=== PATIENT | male | born 1960 | race Caucasian/White ===

== ENCOUNTER 2016-09-26 07:32 | Emergency (ER) | payer BC ==
[~2016-09-26 07:32] MED LIST: CLINDAMYCIN HC300 MG PO; PRILOSEC OTC20 MG PO; VENTOLIN HFA IN; ZYVOX600 MG PO
--- NOTE | 2016-09-26 10:34 | DIAGNOSTIC IMAGING REPORT ---
PROCEDURE: XR CHEST 1 VIEW INDICATION: CHEST PAIN (NOW RESOLVED), COUGH, WHEEZING TECHNIQUE: Portable AP view 08:22 a.m. COMPARISON: Chests 08/30 and 08/27/2014 FINDINGS: Lungs are clear. Heart and mediastinum are normal. Thorax is normal. IMPRESSION: 1. Negative chest.
--- NOTE | 2016-09-26 10:49 | ED NURSING NOTES ---
Clinical Report - Nurses [facility] [address] [place] [address] 09/26/2016 7:32 [id number] Triage time 07:35. Acuity: LEVEL 3. Chief Complaint: CHEST PAIN and (Patient states he "woke up from sleeping" with chest pain that "bounces around my chest."). Alert. No acute distress. SEPSIS SCREEN: Sepsis Screen. Negative (no infection suspected/documented). CONSTANTIN COMA SCORE: [place] Coma Scale: 15- eyes open spontaneously (4); best verbal response- oriented x 4 (5); best motor response- obeys commands (6). --08:00 Remedios Manley R.N. 07:43 09/26/16. BP: 126/63 (regular adult cuff) taken on the right arm, while sitting. HR: 88. RR: 20. O2 saturation: 99% on room air. Temp: 97.5 F. Pain level now: 06/27. --08:00 Remedios Manley R.N. Weight: 95.2 kg estimated. Height/Length: 72 inches Estimated. BMI: 28.5. --07:59 Remedios Manley R.N. Medications PriLOSEC Oral (Capsule Delayed Release 20 mg) 1 capsule, 2x a day. --07:47 Remedios Manley R.N. Atorvastatin Calcium Oral (Tablet 40 mg) 1 tablet, daily. --07:47 Remedios Manley R.N. Clopidogrel Bisulfate Oral (Tablet 75 mg) 1 tablet, daily. --07:47 Remedios Manley R.N. Metoprolol Tartrate Oral (Tablet 50 mg) 1 tablet, 2x/day. --07:47 Remedios Manley R.N. Albuterol Sulfate HFA Inhalation 2 puffs, 4x a day as needed. --07:48 Remedios Manley R.N. MetFORMIN HCl Oral (Tablet 500 mg) 1 tablet, 2x a day. --07:48 Remedios Manley R.N. Methotrexate Sodium Oral (Tablet 2.5 mg) 1 tablet, 3x weekly. --07:48 Remedios Manley R.N. Nitroglycerin Sublingual (Tablet Sublingual 0.4 mg) 1 tablet, 3x a day as needed. --07:49 Remedios Manley R.N. Triamcinolone Acetonide External (Cream 0.025 %), daily as needed. --07:49 Remedios Manley R.N. Allergies Penicillins. --07:47 Remedios Manley R.N. History Arrived by private vehicle. Historian: patient. Accompanied by family. Primary physician (Dr Crain). Onset. (around 2:00 this morning). ( Patient reports he had an NJ on Jun 04, 2016.). No difficulty breathing, nausea or vomiting. Treatment OREMAN: (Nitroglycerin (x2). Patient states the second nitro "knocked the pain down"). PAST MEDICAL HX: Diabetes mellitus. Heart disease. No history of hypertension. Immunizations: up-to-date. SOCIAL HX: Heavy tobacco smoker- 1 pack per day. History of occasional drug use: marijuana. No alcohol use. FALL RISK ASSESSMENT: Fall risk assessment completed. No fall risk identified. NUTRITIONAL RISK ASSESSMENT: The nutritional risk assessment revealed no deficiencies. FUNCTIONAL ASSESSMENT: Functional assessment: no impairments noted. LEARNING NEEDS ASSESSMENT: The learning needs assessment revealed no barriers. SKIN INTEGRITY ASSESSMENT: Skin integrity risk assessment completed. No skin integrity risk identified. --08:00 Remedios Manley R.N. PROBLEMS: Myocardial Infarction. Pneumonia. COPD - Chronic Obstructive Pulmonary Disease. Gastroesophageal Reflux. Gastroesophageal Reflux Disease. --07:56 Remedios Manley R.N. ADDITIONAL SURGERIES: Cardiac Catheterization. --07:56 Remedios Manley R.N. Interventions ID band on patient. To treatment room. --08:00 Remedios Manley R.N. PHYSICAL ASSESSMENT 08:02 09/26/16. Ambulatory to room. GENERAL / NEURO / PSYCH: Alert. Oriented X 4. Appears in no acute distress. HEENT: Mucous membranes are pink. RESPIRATORY: Mild respiratory distress. Chest nontender. Inspiratory bilateral wheezes diffusely. CVS: Heart sounds within normal limits. Pulses within normal limits. Capillary refill less than 2 seconds. GI / : Abdomen soft and nontender. SKIN: Skin is warm and dry. Normal skin turgor. --08:02 Remedios Manley R.N. NURSING PROGRESS NOTES Oxygen administered. millinery teacher, pulse oximeter and NIBP monitor placed on patient. Patient gowned. Head of bed elevated. Two patient identifiers checked. Call light placed in reach. Side rails up x 2. Bed placed in lowest position. Brakes of bed on. Patient ready for evaluation- chart flagged and notification provided. Patient informed about reason for wait and about plan of care. --08:03 Remedios Manley R.N. ( Patient placed on 1L oxygen). --08:04 Remedios Manley R.N. EKG time: (45). EKG was ordered, performed by a tech and shown to the ED physician. --08:09 Facundo Gastelum, SAMMI Tech1 07:44 09/26/2016 Site #1 started via IV in the left forearm with an 20g angiocath; one attempt. Blood drawn: rainbow set. Labeled in the presence of the patient and sent to the lab. Saline lock flushed with 5 mL saline. --08:09 Remedios Manley R.N. 08:34 09/26/2016 Duoneb (Ipratropium-Albuterol) Neb TX Nebulizer 1 unit dose given. Given by the respiratory therapist. Allergies verified and confirmed 5 rights. --08:34 Remedios Manley R.N. 08:44 09/26/2016 Duoneb Neb TX Response: no adverse reaction symptoms have improved the patient feels better. --08:44 Remedios Manley R.N. Reassessment after intervention and medication administered. He has had no adverse reaction. Overall patient status is improved. RESPIRATORY: Breath sounds normal. No wheezes. --08:45 Remedios Manley R.N. Patient and family informed about reason for wait and about plan of care. --08:45 Remedios Manley R.N. 08:00 09/26/16. BP: 120/62 (regular adult cuff) taken on the right arm, while sitting. HR: 86. RR: 21. O2 saturation: 94%. Temp: deferred. Pain level now: 06/27. --08:59 Remedios Manley R.N. EKG time: (1009). EKG was ordered, performed by a tech and shown to the ED physician. --10:15 Facundo Gastelum, SAMMI Tech1. DISPOSITION / DISCHARGE 10:59 09/26/16. BP: 119/73. HR: 85. RR: 18. O2 saturation: 99%. Temp: deferred. Pain level now: 05/27. --11:00 Remedios Manley R.N. 10:51 09/26/2016 Site #1 removed upon discharge. Manual pressure and bandaid applied. --11:01 Remedios Manley R.N. 11:00 09/26/16. No learning barriers present. Discharge instructions provided and reviewed with the patient and spouse. Reviewed referrals. Reviewed diet. Reviewed need to stop smoking. Activity restrictions reviewed. Patient and spouse verbalized understanding. Written instructions provided in Luxembourgish. The patient was discharged by the physician. He was discharged home and accompanied by spouse. He left the Emergency Department ambulatory and via private vehicle. Patient driving. --11:00 Remedios Manley R.N. Locked/Released at 09/26/2016 11:02 by Remedios Manley R.N.
--- NOTE | 2016-09-26 10:49 | ED CLINICAL REPORT ---
Clinical Report - Physicians/Mid Levels [facility] [address] [place] [address] 09/26/2016 7:32 Patient: ALLISON WIGGINS Time Seen: 0748. Arrived- By private vehicle. Historian- patient. CPT: ER phys charges level 5 plus (#[id number]). EKG interpretation (#[id number]). HISTORY OF PRESENT ILLNESS Chief Complaint: CHEST PAIN. At its maximum, severity described as severe. When seen in the E.D., it was gone. Modifying factors- relieved by nitroglycerin (two). Not worsened by anything. 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 He then awoke a 0600 with more chest pressure and took another NTG. He took all his usual meds this morning including plavix. It was abrupt in onset and has been intermittent but is gone now. Is now gone. Onset during sleep. It is described as sharp and it is described as located in the left chest area. No radiation. No nausea, vomiting, difficulty breathing or diaphoresis. (no coughing up blood, no hx of DVT/PE, no recent surgery/trauma.). No additional chest pain. Similar symptoms previously: Once. ( states it feels like when he had his recent heart attack several months ago). Recent medical care: ( Last seen by Dr Briggs, rn immunology Jun. of this year and was doing well.). Not recently seen/assessed. REVIEW OF SYSTEMS No fever, chills, cough, pedal edema or calf pain. No fainting episodes, sore throat or throat, abdominal pain or black stools. No difficulty with urination, skin rash or rash, weakness or diabetic symptoms. No easy bruising. No difficulty walking. All systems otherwise negative, except as recorded above. PAST HISTORY See nurses notes. Myocardial Infarction. Pneumonia. COPD - Chronic Obstructive Pulmonary Disease. Gastroesophageal Reflux. Gastroesophageal Reflux Disease. ADDITIONAL SURGERIES: Cardiac Catheterization. Medications: Triamcinolone Acetonide External (Cream 0.025 %), daily as needed. Nitroglycerin Sublingual (Tablet Sublingual 0.4 mg) 1 tablet, 3x a day as needed. Methotrexate Sodium Oral (Tablet 2.5 mg) 1 tablet, 3x weekly. MetFORMIN HCl Oral (Tablet 500 mg) 1 tablet, 2x a day. Albuterol Sulfate HFA Inhalation 2 puffs, 4x a day as needed. Metoprolol Tartrate Oral (Tablet 50 mg) 1 tablet, 2x/day. Clopidogrel Bisulfate Oral (Tablet 75 mg) 1 tablet, daily. Atorvastatin Calcium Oral (Tablet 40 mg) 1 tablet, daily. PriLOSEC Oral (Capsule Delayed Release 20 mg) 1 capsule, 2x a day. Allergies: Penicillins. SOCIAL HISTORY Smoker- current status unknown. No alcohol use or drug use. No recent travel. Is a local resident. ADDITIONAL NOTES The nursing notes have been reviewed. PHYSICAL EXAM Vital Signs: 09/26/2016 07:43 BP: 126/63. HR: 88. RR: 20. O2 saturation: 99%. Temp: 97.5 F. Pain level now: 2/10. Blood pressure normal. Oxygen saturation normal. Appearance: Alert. Oriented X3. No acute distress. No marfanoid habitus. (non-toxic). Eyes: Pupils equal, round and reactive to light. Eyes normal inspection. ENT: Pharynx normal. Neck: Normal inspection. Neck supple. CVS: Normal heart rate and rhythm. Heart sounds normal. Pulses normal. Respiratory: No respiratory distress. Breath sounds normal. Chest nontender. No rales, rhonchi or wheezes. Abdomen: Soft and nontender. Bowel sounds normal. Skin: Skin warm and dry. Normal skin color. No rash. Normal skin turgor. Extremities: Extremities exhibit normal ROM. No lower extremity edema. Neuro: Oriented X 3. No motor deficit. No sensory deficit. LABS, X-RAYS, AND EKG EKG: No acute process. No acute ischemia. Normal EKG. Normal sinus rhythm. Rate: 88. Normal P waves. Normal GIULIANO. Normal QRS complex. Normal axis. Normal ST and T waves, QT and QTc. The study has been interpreted contemporaneously. The study has been independently viewed by me. The EKG appears to be a good tracing. EKG #2: Normal sinus rhythm. Normal P waves. Normal QRS complex. Normal axis. T wave inversion in lead V1. EKG unchanged when compared with prior EKG. The study has been interpreted contemporaneously. The study has been independently viewed by me. The EKG appears to be a good tracing. Laboratory Tests: CBC w Diff: (STACIE: 09/26/2016 07:50) ( [facility] 09/26/2016 08:16) Final results Test Result Flag Units (Reference) WHITE BLOOD COUNT 15.3 H K/uL (4.5-11.5) RED BLOOD COUNT 4.33 L M/uL (4.50-5.90) HEMOGLOBIN 15.4 gm/dL (13.5-17.5) HEMATOCRIT 45.9 % (41.0-53.0) MEAN CELL VOLUME 106 H fL (80-100) MEAN CORPUSCULAR HGB 36 H pg (26-34) MEAN CORPUSCULAR HGB CONC 34 g/dL (31-37) RED CELL DISTRIBUTION WIDTH 17.6 H % (11.6-14.8) PLATELET COUNT 229 K/uL (150-400) NEUTROPHIL % 91.2 H % (50-75) LYMPH % 4.6 L % (25-40) MONO % 2.7 L % (3-14) EOSINOPHIL % 1.3 % (0-4) BASOPHIL % 0.2 % (0-2) PT with INR: (STACIE: 09/26/2016 07:50) ( [facility] 09/26/2016 08:22) Final results Test Result Flag Units (Reference) INR 1.0 (0.8-1.2) Low Intensity Therapy: INR 1.5-2.0 PT range 18.5-23.1Mod.Intensity Therapy: INR 2.0-3.0 PT range 23.1-31.5High Intensity Therapy: INR 2.5-3.5 PT range 27.4-35.5High Intensity Therapy 2: INR 3.0-4.0 PT range 31.5-39.3 CMP: (STACIE: 09/26/2016 07:50) ( [facility] 09/26/2016 08:25) Final results Test Result Flag Units (Reference) GLUCOSE 170 H mg/dL (70-110) BUN 16 mg/dL (7-18) CREATININE 1.2 mg/dL (0.6-1.3) Estimated GFR >60 mL/min Estimated GFR- >60 mL/min Note: Persistent reduction over 3 months in eGFR<60 mL/min/1.73 m2 defines CKD. Patients with eGFR values>=60 mL/min/1.73 m2 may also have CKD if evidence ofpersistent proteinuria. Additional information may be foundat www.[email or web address]. SODIUM 140 mmol/L (136-145) POTASSIUM 4.5 mmol/L (3.5-5.1) CHLORIDE 107 mmol/L (98-107) CARBON DIOXIDE 25 mmol/L (21-32) CALCIUM 8.0 L mg/dL (8.5-10.1) TOTAL PROTEIN 6.7 g/dL (6.4-8.2) ALBUMIN 3.0 L g/dL (3.3-5.0) BILIRUBIN, TOTAL 0.7 mg/dL (0.0-1.0) ALKALINE PHOSPHATASE 181 H U/L (46-116) AST (SGOT) 19 U/L (15-37) ALT (SGPT) 58 U/L (12-78) TROPONIN I <0.05 ng/mL (0.00-1.5) TROPONIN REFERENCE RANGE:<0.1 NEGATIVE0.1-1.5 INDETERMINANT>1.5 POSITIVE . PROGRESS AND PROCEDURES Course of Care: The patient is a pleasant 56 yo male with hx CAD, smoking, and hyperlipidemia. Recent cardiac cath a few months ago. Presenting for chest pain. Patient with symptom relief with nitro. Concern for ACS. Do not feel work up for PE needed at this time given patient is not having any pain at this time. Patient is wheezing on exam and hx of COPD. Will provided breathing treatment. patient's care to be transfered at the change of shift to the oncoming doctor who will follow up on labs and disposition. Pt with 2 episodes of angina with a stent to the LAD less than 6 months ago. Troponins times 2 negative. EKG times 2 negative for ischemia. Pt with a WILLIAM score of [address] Briggs and he will see in the office today. Pt walked around ER with no recurrent CP. Discussed case with on-call health care provider, (Brigitte, Cardiology.). Reviewed test results. Agreed upon treatment plan. Health care provider will see patient in office. Patient/family counseled. Old medical records ordered. Disposition: Discharged in improved condition. CLINICAL IMPRESSION Recurrent angina status post LAD stent less than 6 months ago. INSTRUCTIONS No strenuous activity. Rest. Avoid stimulants (such as cigarettes, coffee, cold medicines, sinus medicines, street drugs). (See Dr Briggs in office today.). Warnings: Further evaluation is necessary. GENERAL WARNINGS: Return or contact your physician immediately if your condition worsens or changes unexpectedly, if not improving as expected, or if other problems arise. Your Current Medications: CONTINUE TAKING THE FOLLOWING MEDICATIONS: Albuterol Sulfate HFA Inhalation : 2 puffs 4x a day, prn. Atorvastatin Calcium Oral : Tablet 40 mg, 1 tablet daily. Clopidogrel Bisulfate Oral : Tablet 75 mg, 1 tablet daily. MetFORMIN HCl Oral : Tablet 500 mg, 1 tablet 2x a day. Methotrexate Sodium Oral : Tablet 2.5 mg, 1 tablet 3x weekly. Metoprolol Tartrate Oral : Tablet 50 mg, 1 tablet 2x/day. Nitroglycerin Sublingual : Tablet Sublingual 0.4 mg, 1 tablet 3x a day, prn. PriLOSEC Oral : Capsule Delayed Release 20 mg, 1 capsule 2x a day. Triamcinolone Acetonide External : Cream 0.025 %, daily, prn. Understanding of the discharge instructions verbalized by patient and family. Discharge instructions reviewed with and understanding was verbalized by spouse. (Electronically signed by Eligio Coronado MD 09/26/2016 13:47)
--- NOTE | 2016-09-26 10:49 | ED CLINICAL REPORT ---
Clinical Report - Physicians/Mid Levels [facility] [address] [place] [address] 09/26/2016 7:32 Patient: ALLISON WIGGINS Time Seen: 0748. Arrived- By private vehicle. Historian- patient. CPT: ER phys charges level 5 plus (#[id number]). EKG interpretation (#[id number]). HISTORY OF PRESENT ILLNESS Chief Complaint: CHEST PAIN. At its maximum, severity described as severe. When seen in the E.D., it was gone. Modifying factors- relieved by nitroglycerin (two). Not worsened by anything. 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 He then awoke a 0600 with more chest pressure and took another NTG. He took all his usual meds this morning including plavix. It was abrupt in onset and has been intermittent but is gone now. Is now gone. Onset during sleep. It is described as sharp and it is described as located in the left chest area. No radiation. No nausea, vomiting, difficulty breathing or diaphoresis. (no coughing up blood, no hx of DVT/PE, no recent surgery/trauma.). No additional chest pain. Similar symptoms previously: Once. ( states it feels like when he had his recent heart attack several months ago). Recent medical care: ( Last seen by Dr Briggs, dub room engineer Jun. of this year and was doing well.). Not recently seen/assessed. REVIEW OF SYSTEMS No fever, chills, cough, pedal edema or calf pain. No fainting episodes, sore throat or throat, abdominal pain or black stools. No difficulty with urination, skin rash or rash, weakness or diabetic symptoms. No easy bruising. No difficulty walking. All systems otherwise negative, except as recorded above. PAST HISTORY See nurses notes. Myocardial Infarction. Pneumonia. COPD - Chronic Obstructive Pulmonary Disease. Gastroesophageal Reflux. Gastroesophageal Reflux Disease. ADDITIONAL SURGERIES: Cardiac Catheterization. Medications: Triamcinolone Acetonide External (Cream 0.025 %), daily as needed. Nitroglycerin Sublingual (Tablet Sublingual 0.4 mg) 1 tablet, 3x a day as needed. Methotrexate Sodium Oral (Tablet 2.5 mg) 1 tablet, 3x weekly. MetFORMIN HCl Oral (Tablet 500 mg) 1 tablet, 2x a day. Albuterol Sulfate HFA Inhalation 2 puffs, 4x a day as needed. Metoprolol Tartrate Oral (Tablet 50 mg) 1 tablet, 2x/day. Clopidogrel Bisulfate Oral (Tablet 75 mg) 1 tablet, daily. Atorvastatin Calcium Oral (Tablet 40 mg) 1 tablet, daily. PriLOSEC Oral (Capsule Delayed Release 20 mg) 1 capsule, 2x a day. Allergies: Penicillins. SOCIAL HISTORY Smoker- current status unknown. No alcohol use or drug use. No recent travel. Is a local resident. ADDITIONAL NOTES The nursing notes have been reviewed. PHYSICAL EXAM Vital Signs: 09/26/2016 07:43 BP: 126/63. HR: 88. RR: 20. O2 saturation: 99%. Temp: 97.5 F. Pain level now: 2/10. Blood pressure normal. Oxygen saturation normal. Appearance: Alert. Oriented X3. No acute distress. No marfanoid habitus. (non-toxic). Eyes: Pupils equal, round and reactive to light. Eyes normal inspection. ENT: Pharynx normal. Neck: Normal inspection. Neck supple. CVS: Normal heart rate and rhythm. Heart sounds normal. Pulses normal. Respiratory: No respiratory distress. Breath sounds normal. Chest nontender. No rales, rhonchi or wheezes. Abdomen: Soft and nontender. Bowel sounds normal. Skin: Skin warm and dry. Normal skin color. No rash. Normal skin turgor. Extremities: Extremities exhibit normal ROM. No lower extremity edema. Neuro: Oriented X 3. No motor deficit. No sensory deficit. LABS, X-RAYS, AND EKG EKG: No acute process. No acute ischemia. Normal EKG. Normal sinus rhythm. Rate: 88. Normal P waves. Normal GIULIANO. Normal QRS complex. Normal axis. Normal ST and T waves, QT and QTc. The study has been interpreted contemporaneously. The study has been independently viewed by me. The EKG appears to be a good tracing. EKG #2: Normal sinus rhythm. Normal P waves. Normal QRS complex. Normal axis. T wave inversion in lead V1. EKG unchanged when compared with prior EKG. The study has been interpreted contemporaneously. The study has been independently viewed by me. The EKG appears to be a good tracing. Laboratory Tests: CBC w Diff: (STACIE: 09/26/2016 07:50) ( [facility] 09/26/2016 08:16) Final results Test Result Flag Units (Reference) WHITE BLOOD COUNT 15.3 H K/uL (4.5-11.5) RED BLOOD COUNT 4.33 L M/uL (4.50-5.90) HEMOGLOBIN 15.4 gm/dL (13.5-17.5) HEMATOCRIT 45.9 % (41.0-53.0) MEAN CELL VOLUME 106 H fL (80-100) MEAN CORPUSCULAR HGB 36 H pg (26-34) MEAN CORPUSCULAR HGB CONC 34 g/dL (31-37) RED CELL DISTRIBUTION WIDTH 17.6 H % (11.6-14.8) PLATELET COUNT 229 K/uL (150-400) NEUTROPHIL % 91.2 H % (50-75) LYMPH % 4.6 L % (25-40) MONO % 2.7 L % (3-14) EOSINOPHIL % 1.3 % (0-4) BASOPHIL % 0.2 % (0-2) PT with INR: (STACIE: 09/26/2016 07:50) ( [facility] 09/26/2016 08:22) Final results Test Result Flag Units (Reference) INR 1.0 (0.8-1.2) Low Intensity Therapy: INR 1.5-2.0 PT range 18.5-23.1Mod.Intensity Therapy: INR 2.0-3.0 PT range 23.1-31.5High Intensity Therapy: INR 2.5-3.5 PT range 27.4-35.5High Intensity Therapy 2: INR 3.0-4.0 PT range 31.5-39.3 CMP: (STACIE: 09/26/2016 07:50) ( [facility] 09/26/2016 08:25) Final results Test Result Flag Units (Reference) GLUCOSE 170 H mg/dL (70-110) BUN 16 mg/dL (7-18) CREATININE 1.2 mg/dL (0.6-1.3) Estimated GFR >60 mL/min Estimated GFR- >60 mL/min Note: Persistent reduction over 3 months in eGFR<60 mL/min/1.73 m2 defines CKD. Patients with eGFR values>=60 mL/min/1.73 m2 may also have CKD if evidence ofpersistent proteinuria. Additional information may be foundat [email or web address].org. SODIUM 140 mmol/L (136-145) POTASSIUM 4.5 mmol/L (3.5-5.1) CHLORIDE 107 mmol/L (98-107) CARBON DIOXIDE 25 mmol/L (21-32) CALCIUM 8.0 L mg/dL (8.5-10.1) TOTAL PROTEIN 6.7 g/dL (6.4-8.2) ALBUMIN 3.0 L g/dL (3.3-5.0) BILIRUBIN, TOTAL 0.7 mg/dL (0.0-1.0) ALKALINE PHOSPHATASE 181 H U/L (46-116) AST (SGOT) 19 U/L (15-37) ALT (SGPT) 58 U/L (12-78) TROPONIN I <0.05 ng/mL (0.00-1.5) TROPONIN REFERENCE RANGE:<0.1 NEGATIVE0.1-1.5 INDETERMINANT>1.5 POSITIVE . PROGRESS AND PROCEDURES Course of Care: The patient is a pleasant 56 yo male with hx CAD, smoking, and hyperlipidemia. Recent cardiac cath a few months ago. Presenting for chest pain. Patient with symptom relief with nitro. Concern for ACS. Do not feel work up for PE needed at this time given patient is not having any pain at this time. Patient is wheezing on exam and hx of COPD. Will provided breathing treatment. patient's care to be transfered at the change of shift to the oncoming doctor who will follow up on labs and disposition. Pt with 2 episodes of angina with a stent to the LAD less than 6 months ago. Troponins times 2 negative. EKG times 2 negative for ischemia. Pt with a WILLIAM score of [address] Briggs and he will see in the office today. Pt walked around ER with no recurrent CP. Discussed case with on-call health care provider, (Brigitte, Cardiology.). Reviewed test results. Agreed upon treatment plan. Health care provider will see patient in office. Patient/family counseled. Old medical records ordered. Disposition: Discharged in improved condition. CLINICAL IMPRESSION Recurrent angina status post LAD stent less than 6 months ago. INSTRUCTIONS No strenuous activity. Rest. Avoid stimulants (such as cigarettes, coffee, cold medicines, sinus medicines, street drugs). (See Dr Briggs in office today.). Warnings: Further evaluation is necessary. GENERAL WARNINGS: Return or contact your physician immediately if your condition worsens or changes unexpectedly, if not improving as expected, or if other problems arise. Your Current Medications: CONTINUE TAKING THE FOLLOWING MEDICATIONS: Albuterol Sulfate HFA Inhalation : 2 puffs 4x a day, prn. Atorvastatin Calcium Oral : Tablet 40 mg, 1 tablet daily. Clopidogrel Bisulfate Oral : Tablet 75 mg, 1 tablet daily. MetFORMIN HCl Oral : Tablet 500 mg, 1 tablet 2x a day. Methotrexate Sodium Oral : Tablet 2.5 mg, 1 tablet 3x weekly. Metoprolol Tartrate Oral : Tablet 50 mg, 1 tablet 2x/day. Nitroglycerin Sublingual : Tablet Sublingual 0.4 mg, 1 tablet 3x a day, prn. PriLOSEC Oral : Capsule Delayed Release 20 mg, 1 capsule 2x a day. Triamcinolone Acetonide External : Cream 0.025 %, daily, prn. Understanding of the discharge instructions verbalized by patient and family. Discharge instructions reviewed with and understanding was verbalized by spouse. (Electronically signed by Eligio Coronado MD 09/26/2016 13:47)
--- NOTE | 2016-09-26 10:49 | ED ORDER SUMMARY ---
..... Patient: ALLISON WIGGINS OrderSheet [facility] VisitID: [id number] [address] [place] [address] 56y, M Registration Date/Time: 09/26/2016 ORDER SHEET Weight: 95.2 kg (estimated) Allergies: Penicillins GENERAL ORDERS: EKG - ER Stat (07:48 09/26/2016 Ivette Moser) (7:53 Kvng R.N.) Chest 1V Urgent (08:06 09/26/2016 Ivette Moser) (Ack 8:08 ALBAurca ER Tech1) (8:23 RMarsden R.N.) Pipe Fitter Ammonia (Continuous) (CP) (08:07 09/26/2016 Ivette Moser) (8:08 RMarsden R.N.) (Ack 8:08 ALBAurca ER Tech1) CBC w Diff Urgent (08:07 09/26/2016 Ivette Moser) (8:08 RMarsden R.N.) (Ack 8:08 ALBAurca ER Tech1) CMP Urgent (08:07 09/26/2016 Ivette Moser) (8:08 RMarsden R.N.) (Ack 8:08 ALBAurcerrol ER Tech1) PT with INR Urgent (08:07 09/26/2016 Ivette Moser) (8:08 RMarsden R.N.) (Ack 8:08 ALBAurcerrol ER Tech1) Troponin-I Urgent (08:07 09/26/2016 Ivette Moser) (8:08 RMarsden R.N.) (Ack 8:08 ALBAurca ER Tech1) Pulse oximeter (08:07 09/26/2016 Ivette Moser) (8:08 RMarsden R.N.) (Ack 8:08 ALBAurcerrol ER Tech1) Troponin-I (redraw at 0950) Urgent (08:34 09/26/2016 Ivette Moser) (Ack 8:37 IJurca ER Tech1) (Sent 10:14 IJurca ER Tech1) (11:01 RMarsden R.N.) EKG - ER Stat (10:02 09/26/2016 Alison JEFFERSON) (10:14 Chad CHAPA Tech1) MEDICATION ORDERS: DuoNeb Neb Tx 1 unit dose (NOW) (08:07 09/26/2016 Ivette Moser) (Ack 8:09 José R.N.) (8:34 José R.N.) IV FLUIDS: IV Saline Lock (08:07 09/26/2016 Ivette Moser) (8:09 José R.N.) ORDER SHEET NOTES: [Electronically signed by Remedios Manley R.N. (11:09/26/2016)] [Electronically signed by Eligio Coronado MD (13:46 09/26/2016)] [Electronically locked/signed by Remedios Manley R.N. (11:09/26/2016)]
--- NOTE | 2016-09-26 10:49 | ED NURSING NOTES ---
Clinical Report - Nurses [facility] [address] [place] [address] 09/26/2016 7:32 Patient: ALLISON WIGGINS [facility] [id number] TRIAGE Triage time 07:35. Acuity: LEVEL 3. Chief Complaint: CHEST PAIN and (Patient states he "woke up from sleeping" with chest pain that "bounces around my chest."). Alert. No acute distress. SEPSIS SCREEN: Sepsis Screen. Negative (no infection suspected/documented). CONSTANTIN COMA SCORE: [place] Coma Scale: 15- eyes open spontaneously (4); best verbal response- oriented x 4 (5); best motor response- obeys commands (6). --08:00 Remedios Manley R.N. 07:43 09/26/16. BP: 126/63 (regular adult cuff) taken on the right arm, while sitting. HR: 88. RR: 20. O2 saturation: 99% on room air. Temp: 97.5 F. Pain level now: 06/27. --08:00 Remedios Manley R.N. Weight: 95.2 kg estimated. Height/Length: 72 inches Estimated. BMI: 28.5. --07:59 Remedios Manley R.N. Medications PriLOSEC Oral (Capsule Delayed Release 20 mg) 1 capsule, 2x a day. --07:47 Remedios Manley R.N. Atorvastatin Calcium Oral (Tablet 40 mg) 1 tablet, daily. --07:47 Remedios Manley R.N. Clopidogrel Bisulfate Oral (Tablet 75 mg) 1 tablet, daily. --07:47 Remedios Manley R.N. Metoprolol Tartrate Oral (Tablet 50 mg) 1 tablet, 2x/day. --07:47 Remedios Manley R.N. Albuterol Sulfate HFA Inhalation 2 puffs, 4x a day as needed. --07:48 Remedios Manley R.N. MetFORMIN HCl Oral (Tablet 500 mg) 1 tablet, 2x a day. --07:48 Remedios Manley R.N. Methotrexate Sodium Oral (Tablet 2.5 mg) 1 tablet, 3x weekly. --07:48 Remedios Manley R.N. Nitroglycerin Sublingual (Tablet Sublingual 0.4 mg) 1 tablet, 3x a day as needed. --07:49 Remedios Manley R.N. Triamcinolone Acetonide External (Cream 0.025 %), daily as needed. --07:49 Remedios Manley R.N. Allergies Penicillins. --07:47 Remedios Manley R.N. History Arrived by private vehicle. Historian: patient. Accompanied by family. Primary physician (Dr Crain). Onset. (around 2:00 this morning). ( Patient reports he had an LA on Jun 04, 2016.). No difficulty breathing, nausea or vomiting. 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 Patient states the second nitro "knocked the pain down"). PAST MEDICAL HX: Diabetes mellitus. Heart disease. No history of hypertension. Immunizations: up-to-date. SOCIAL HX: Heavy tobacco smoker- 1 pack per day. History of occasional drug use: marijuana. No alcohol use. FALL RISK ASSESSMENT: Fall risk assessment completed. No fall risk identified. NUTRITIONAL RISK ASSESSMENT: The nutritional risk assessment revealed no deficiencies. FUNCTIONAL ASSESSMENT: Functional assessment: no impairments noted. LEARNING NEEDS ASSESSMENT: The learning needs assessment revealed no barriers. SKIN INTEGRITY ASSESSMENT: Skin integrity risk assessment completed. No skin integrity risk identified. --08:00 Remedios Manley R.N. PROBLEMS: Myocardial Infarction. Pneumonia. COPD - Chronic Obstructive Pulmonary Disease. Gastroesophageal Reflux. Gastroesophageal Reflux Disease. --07:56 Remedios Manley R.N. ADDITIONAL SURGERIES: Cardiac Catheterization. --07:56 Remedios Manley R.N. Interventions ID band on patient. To treatment room. --08:00 Remedios Manley R.N. PHYSICAL ASSESSMENT 08:02 09/26/16. Ambulatory to room. GENERAL / NEURO / PSYCH: Alert. Oriented X 4. Appears in no acute distress. HEENT: Mucous membranes are pink. RESPIRATORY: Mild respiratory distress. Chest nontender. Inspiratory bilateral wheezes diffusely. CVS: Heart sounds within normal limits. Pulses within normal limits. Capillary refill less than 2 seconds. GI / : Abdomen soft and nontender. SKIN: Skin is warm and dry. Normal skin turgor. --08:02 Remedios Manley R.N. NURSING PROGRESS NOTES Oxygen administered. night monitor, pulse oximeter and NIBP monitor placed on patient. Patient gowned. Head of bed elevated. Two patient identifiers checked. Call light placed in reach. Side rails up x 2. Bed placed in lowest position. Brakes of bed on. Patient ready for evaluation- chart flagged and notification provided. Patient informed about reason for wait and about plan of care. --08:03 Remedios Manley R.N. ( Patient placed on 1L oxygen). --08:04 Remedios Manley R.N. EKG time: (45). EKG was ordered, performed by a tech and shown to the ED physician. --08:09 Facundo Gastelum, SAMMI Tech1 07:44 09/26/2016 Site #1 started via IV in the left forearm with an 20g angiocath; one attempt. Blood drawn: rainbow set. Labeled in the presence of the patient and sent to the lab. Saline lock flushed with 5 mL saline. --08:09 Remedios Manley R.N. 08:34 09/26/2016 Duoneb (Ipratropium-Albuterol) Neb TX Nebulizer 1 unit dose given. Given by the respiratory therapist. Allergies verified and confirmed 5 rights. --08:34 Remedios Manley R.N. 08:44 09/26/2016 Duoneb Neb TX Response: no adverse reaction symptoms have improved the patient feels better. --08:44 Remedios Manley R.N. Reassessment after intervention and medication administered. He has had no adverse reaction. Overall patient status is improved. RESPIRATORY: Breath sounds normal. No wheezes. --08:45 Remedios Manley R.N. Patient and family informed about reason for wait and about plan of care. --08:45 Remedios Manley R.N. 08:00 09/26/16. BP: 120/62 (regular adult cuff) taken on the right arm, while sitting. HR: 86. RR: 21. O2 saturation: 94%. Temp: deferred. Pain level now: 06/27. --08:59 Remedios Manley R.N. EKG time: (1009). EKG was ordered, performed by a tech and shown to the ED physician. --10:15 Facundo Gastelum, SAMMI Tech1. DISPOSITION / DISCHARGE 10:59 09/26/16. BP: 119/73. HR: 85. RR: 18. O2 saturation: 99%. Temp: deferred. Pain level now: 05/27. --11:00 Remedios Manley R.N. 10:51 09/26/2016 Site #1 removed upon discharge. Manual pressure and bandaid applied. --11:01 Remedios Manley R.N. 11:00 09/26/16. No learning barriers present. Discharge instructions provided and reviewed with the patient and spouse. Reviewed referrals. Reviewed diet. Reviewed need to stop smoking. Activity restrictions reviewed. Patient and spouse verbalized understanding. Written instructions provided in Sinhala. The patient was discharged by the physician. He was discharged home and accompanied by spouse. He left the Emergency Department ambulatory and via private vehicle. Patient driving. --11:00 Remedios Manley R.N. Locked/Released at 09/26/2016 11:02 by Remedios Manley R.N.
--- NOTE | 2016-09-26 10:49 | ED ORDER SUMMARY ---
..... Patient: ALLISON WIGGINS OrderSheet [facility] VisitID: [id number] [address] [place] [address] 56y, M Registration Date/Time: 09/26/2016 ORDER SHEET Weight: 95.2 kg (estimated) Allergies: Penicillins GENERAL ORDERS: EKG - ER Stat (07:48 09/26/2016 Ivette Moser) (7:53 Kvng R.N.) Chest 1V Urgent (08:06 09/26/2016 Ivette Moser) (Ack 8:08 ALBAurca ER Tech1) (8:23 RMarsden R.N.) Belly Dump Driver (Continuous) (CP) (08:07 09/26/2016 Ivette Moser) (8:08 RMarsden R.N.) (Ack 8:08 ALBAurca ER Tech1) CBC w Diff Urgent (08:07 09/26/2016 Ivette Moser) (8:08 RMarsden R.N.) (Ack 8:08 ALBAurca ER Tech1) CMP Urgent (08:07 09/26/2016 Ivette Moser) (8:08 RMarsden R.N.) (Ack 8:08 ALBAurcerrol ER Tech1) PT with INR Urgent (08:07 09/26/2016 Ivette Moser) (8:08 RMarsden R.N.) (Ack 8:08 ALBAurcerrol ER Tech1) Troponin-I Urgent (08:07 09/26/2016 Ivette Moser) (8:08 RMarsden R.N.) (Ack 8:08 ALBAurca ER Tech1) Pulse oximeter (08:07 09/26/2016 Ivette Moser) (8:08 RMarsden R.N.) (Ack 8:08 ALBAurcerrol ER Tech1) Troponin-I (redraw at 0950) Urgent (08:34 09/26/2016 Ivette Moser) (Ack 8:37 IJurca ER Tech1) (Sent 10:14 IJurca ER Tech1) (11:01 RMarsden R.N.) EKG - ER Stat (10:02 09/26/2016 Alison JEFFERSON) (10:14 Chad CHAPA Tech1) MEDICATION ORDERS: DuoNeb Neb Tx 1 unit dose (NOW) (08:07 09/26/2016 Ivette Moser) (Ack 8:09 José R.N.) (8:34 José R.N.) IV FLUIDS: IV Saline Lock (08:07 09/26/2016 Ivette Moser) (8:09 José R.N.) ORDER SHEET NOTES: [Electronically signed by Remedios Manley R.N. (11:09/26/2016)] [Electronically signed by Eligio Coronado MD (13:46 09/26/2016)] [Electronically locked/signed by Remedios Manley R.N. (11:09/26/2016)]
--- NOTE | 2016-09-26 13:47 | ED MAR SUMMARY ---
..... Medication Administration Record [facility] [address] [place] [address] Patient: ALLISON WIGGINS Visit ID: [id number] 56y, M Weight: 95.2 kg Height/Length: 72 in BMI: 28.5 ALLERGIES: Penicillins Given 08:34 09/26/2016 Remedios Manley R.N. Medication Administered: DUONEB [NEB TX] (IPRATROPIUM-ALBUTEROL), Dose: 1 unit dose Nebulizer Neb TX. Medication Ordered: DuoNeb Neb Tx 1 unit dose (NOW).
--- NOTE | 2016-09-26 13:47 | ED DISCHARGE INSTRUCTIONS ---
Patient: ALLISON WIGGINS General Instructions [facility] VisitID: [id number] [address] [place] [address] 56y, M Registration Date/Time: 09/26/2016 Recurrent angina status post LAD stent less than 6 months ago. INSTRUCTIONS No strenuous activity. Rest. Avoid stimulants (such as cigarettes, coffee, cold medicines, sinus medicines, street drugs). (See Dr Briggs in office today.). Warnings: Further evaluation is necessary. GENERAL WARNINGS: Return or contact your physician immediately if your condition worsens or changes unexpectedly, if not improving as expected, or if other problems arise. Your Current Medications: CONTINUE TAKING THE FOLLOWING MEDICATIONS: Albuterol Sulfate HFA Inhalation : 2 puffs 4x a day, prn. Atorvastatin Calcium Oral : Tablet 40 mg, 1 tablet daily. Clopidogrel Bisulfate Oral : Tablet 75 mg, 1 tablet daily. MetFORMIN HCl Oral : Tablet 500 mg, 1 tablet 2x a day. Methotrexate Sodium Oral : Tablet 2.5 mg, 1 tablet 3x weekly. Metoprolol Tartrate Oral : Tablet 50 mg, 1 tablet 2x/day. Nitroglycerin Sublingual : Tablet Sublingual 0.4 mg, 1 tablet 3x a day, prn. PriLOSEC Oral : Capsule Delayed Release 20 mg, 1 capsule 2x a day. Triamcinolone Acetonide External : Cream 0.025 %, daily, prn. Understanding of the discharge instructions verbalized by patient and family. Discharge instructions reviewed with and understanding was verbalized by spouse. No strenuous activity. Rest. (Electronically signed by Eligio Coronado MD 09/26/2016 13:47)
--- NOTE | 2016-09-26 13:47 | ED DISCHARGE INSTRUCTIONS ---
Patient: ALLISON WIGGINS General Instructions [facility] VisitID: [id number] [address] [place] [address] 56y, M Registration Date/Time: 09/26/2016 Recurrent angina status post LAD stent less than 6 months ago. INSTRUCTIONS No strenuous activity. Rest. Avoid stimulants (such as cigarettes, coffee, cold medicines, sinus medicines, street drugs). (See Dr Briggs in office today.). Warnings: Further evaluation is necessary. GENERAL WARNINGS: Return or contact your physician immediately if your condition worsens or changes unexpectedly, if not improving as expected, or if other problems arise. Your Current Medications: CONTINUE TAKING THE FOLLOWING MEDICATIONS: Albuterol Sulfate HFA Inhalation : 2 puffs 4x a day, prn. Atorvastatin Calcium Oral : Tablet 40 mg, 1 tablet daily. Clopidogrel Bisulfate Oral : Tablet 75 mg, 1 tablet daily. MetFORMIN HCl Oral : Tablet 500 mg, 1 tablet 2x a day. Methotrexate Sodium Oral : Tablet 2.5 mg, 1 tablet 3x weekly. Metoprolol Tartrate Oral : Tablet 50 mg, 1 tablet 2x/day. Nitroglycerin Sublingual : Tablet Sublingual 0.4 mg, 1 tablet 3x a day, prn. PriLOSEC Oral : Capsule Delayed Release 20 mg, 1 capsule 2x a day. Triamcinolone Acetonide External : Cream 0.025 %, daily, prn. Understanding of the discharge instructions verbalized by patient and family. Discharge instructions reviewed with and understanding was verbalized by spouse. No strenuous activity. Rest. (Electronically signed by Eligio Coronado MD 09/26/2016 13:47)
--- NOTE | 2016-09-26 13:47 | ED MAR SUMMARY ---
..... Medication Administration Record [facility] [address] [place] [address] Patient: ALLISON WIGGINS Visit ID: [id number] 56y, M Weight: 95.2 kg Height/Length: 72 in BMI: 28.5 ALLERGIES: Penicillins Given 08:34 09/26/2016 Remedios Manley R.N. Medication Administered: DUONEB [NEB TX] (IPRATROPIUM-ALBUTEROL), Dose: 1 unit dose Nebulizer Neb TX. Medication Ordered: DuoNeb Neb Tx 1 unit dose (NOW).
--- NOTE | 2016-09-26 13:47 | ED MED RECONCILIATION SUMMARY ---
Patient: ALLISON WIGGINS Medication Reconciliation Report [facility] VisitID: [id number] [address] [place] [address] 56y, M Registration Date/Time: 09/26/2016 Weight: 95.2 kg Height/Length: 72 in. BMI: 28.5 ALLERGIES: Penicillins The patient's Home Medications are listed below: CONTINUE TAKING THE FOLLOWING MEDICATIONS: Albuterol Sulfate HFA Inhalation 2 puffs, 4x a day Atorvastatin Calcium Oral (40 mg) 1 tablet, daily Clopidogrel Bisulfate Oral (75 mg) 1 tablet, daily MetFORMIN HCl Oral (500 mg) 1 tablet, 2x a day Methotrexate Sodium Oral (2.5 mg) 1 tablet, 3x weekly Metoprolol Tartrate Oral (50 mg) 1 tablet, 2x/day Nitroglycerin Sublingual (0.4 mg) 1 tablet, 3x a day PriLOSEC Oral (20 mg) 1 capsule, 2x a day Triamcinolone Acetonide External (0.025 %), daily The source(s) of the original Home Medication information: Not obtained. The following Medications were given to the patient in the Emergency Department: Duoneb [Neb Tx] Neb TX 1 unit dose, administered: 09/26/2016 8:34:00 AM The following Medications were prescribed to the patient: None.
--- NOTE | 2016-09-26 13:47 | ED MED RECONCILIATION SUMMARY ---
Patient: ALLISON WIGGINS Medication Reconciliation Report [facility] VisitID: [id number] [address] [place] [address] 56y, M Registration Date/Time: 09/26/2016 Weight: 95.2 kg Height/Length: 72 in. BMI: 28.5 ALLERGIES: Penicillins The patient's Home Medications are listed below: CONTINUE TAKING THE FOLLOWING MEDICATIONS: Albuterol Sulfate HFA Inhalation 2 puffs, 4x a day Atorvastatin Calcium Oral (40 mg) 1 tablet, daily Clopidogrel Bisulfate Oral (75 mg) 1 tablet, daily MetFORMIN HCl Oral (500 mg) 1 tablet, 2x a day Methotrexate Sodium Oral (2.5 mg) 1 tablet, 3x weekly Metoprolol Tartrate Oral (50 mg) 1 tablet, 2x/day Nitroglycerin Sublingual (0.4 mg) 1 tablet, 3x a day PriLOSEC Oral (20 mg) 1 capsule, 2x a day Triamcinolone Acetonide External (0.025 %), daily The source(s) of the original Home Medication information: Not obtained. The following Medications were given to the patient in the Emergency Department: Duoneb [Neb Tx] Neb TX 1 unit dose, administered: 09/26/2016 8:34:00 AM The following Medications were prescribed to the patient: None.
== END 2016-09-26 11:00 | disposition home or self-care (01) ==
LOC: ED SRH 07:32
DX: I20.9 Angina pectoris, unspecified (principal); Z95.818 Presence of other cardiac implants and grafts; J44.9 Chronic obstructive pulmonary disease, unspecified; E11.9 Type 2 diabetes mellitus without complications; K21.9 Gastro-esophageal reflux disease without esophagitis; Z79.84 Long term (current) use of oral hypoglycemic drugs; Z79.899 Other long term (current) drug therapy; F17.210 Nicotine dependence, cigarettes, uncomplicated; Z88.0 Allergy status to penicillin; I25.2 Old myocardial infarction
CPT/HCPCS: 90100; 90616; 94060; 95059